=== PATIENT | male | born 1960 | race Caucasian/White ===

== ENCOUNTER 2017-10-27 16:42 | Observation (INO) | payer OTHER, SELFPAY ==
[2017-10-27] VITALS (7 sets, daily range): BP systolic 129–156; BP diastolic 90–103; PULSE 67–91; RESP 11–19; TEMP 36.6–36.9; O2SAT 94–98; BMI 33.0; BMI 32.8
--- NOTE | 2017-10-27 17:26 | CT_ITS ---
STUDY: CT BRAIN WITHOUT CONTRAST REASON FOR EXAM: Male, 57 years old. Right ear pain. RADIATION DOSAGE (If Supplied By Facility): CTDIvol = ( 60.81 ) mGy, DLP = ( 1112.69 ) mGycm TECHNIQUE: Transaxial CT imaging of the brain was performed without administration of intravenous contrast material. Individualized dose optimization techniques were used for this CT. COMPARISON: None. FINDINGS: Normal soft tissue structures. Normal calvarium. Normal size ventricles and extra-axial spaces for the patient's age. Normal white matter tracts of the cerebral hemispheres. Normal basal ganglia and thalami. Normal brainstem. There is prominence of the retrocerebellar CSF space suggestive of an underlying ann cisterna magna. There is no intracranial hemorrhage. There are no findings of an acute ischemic infarction. There is mild opacification of the ethmoid sinuses suggestive of a history of sinusitis. CT/Brain/Head without Contrast IMPRESSION: No acute intracranial process. Mild opacification of the ethmoid sinuses consistent with a history of sinusitis. 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 Electronically Signed: Ruth Montes MD at 18:23 EDT Tel , Service support ,
--- NOTE | 2017-10-27 17:35 | RAD_ITS ---
STUDY: X-RAY CHEST REASON FOR EXAM: Male, 57 years old. Cough TECHNIQUE: Portable upright AP chest COMPARISON: None. FINDINGS: Background pulmonary features suggesting the presence of COPD. Correlate smoking history. Tiny radiodense pulmonary nodules most consistent with calcified granulomata. Routine screening chest CT is recommended. The lungs are otherwise clear. Normal cardiomediastinal silhouette, edgardo and pleural margins. No acute osseous or upper abdominal process. RAD/Chest 1 View (Portable) IMPRESSION: No acute cardiopulmonary process. Electronically Signed: Tim Loo, at 17:45 EDT Tel , Service support ,
[2017-10-27 17:50] LABS: Absolute Lymphocyte Count 2.33 X10^3/ul (0.83-4.51); Absolute Neutrophil Count 2.8 X10^3/uL (2.0-7.7); Basophil# 0.02 X10^3/uL; Basophil% 0.3 % (0-1); Eosinophils% 9.4 % (0-5); Hematocrit 42.6 % (40-54); Hemoglobin 14.4 g/dl (13.0-16.5); Lymphocyte # 2.33 X10^3/ul (4.0); Lymphocyte % 36.6 % (19-41); Mean Corp Hgb Conc 33.8 g/gl (32-36); Mean Corpuscular Hgb 30.1 pg (27.0-32.0); Mean Corpuscular Volume 88.9 fL (80-94); Mean Platelet Vol. 10.4 fl (6.2-12.0); Monocyte# 0.61 X10^3/uL; Monocyte% 9.6 % (0-10); Neutrophil % 44.1 % (47-70); Platelet Count 207 K/mm3 (150-450); RBC Distribution Width CV 13.1 % (11.6-14.6); RBC Distribution Width SD 42.4 fl (35.1-43.9); Red Blood Count 4.79 M/mm3 (4.6-6.2); White Blood Count 6.4 K/mm3 (4.4-11.0)
[2017-10-27] MEDS: 0.9% Normal Saline 1,000 ML 150 ML IV (18:02)
[2017-10-27 18:05] LABS: AST(SGOT) 49 U/L (15-37); Alanine Aminotransfer ALT/SGPT 97 U/L (16-61); Albumin, Serum 3.8 g/dL (3.2-5.0); Alkaline Phosphatase 73 U/L (45-117); Anion Gap 7 (5-15); BUN 9 mg/dL (7-18); BUN/Creat Ratio 10.8 RATIO (10-20); Calcium,Total 8.9 mg/dL (8.5-10.1); Chloride 105 mmol/L (98-107); Creatinine, Serum 0.83 mg/dL (0.70-1.30); EST Glomerular Filtration Rate 101 mL/min (>60); Est Glom Filt Rate - Afr Amer 122 mL/min (>60); Estimated Creatinine Clearance 91.81 ml/min; Globulin 3.8 g/dL (2.2-4.2); Glucose 120 mg/dL (74-106); Potassium 4.2 mmol/L (3.5-5.1); Protein, Total 7.6 g/dL (6.4-8.2); Sodium Level 138 mmol/L (136-145)
[2017-10-27 18:17] LABS: POSITIVE COUNT NO; POSITIVE DIFFERENTIAL NO; POSITIVE MORPHOLOGY NO
--- NOTE | 2017-10-27 19:26 | PCM.HP.STD ---
Problem List (1) Fatigue Status: Acute (2) Memory changes Status: Acute (3) Tinnitus Status: Acute History of Present Illness Date of Admission: 10/27/17 Chief Complaint: Fatigue, memory problems and ringing in his ears. The patient is a 57 year old M with a significant history of hyperlipidemia who presents with multiple complaints. He reports of fatigue ?3 days. He describes a severe tiredness with exertion that limits his activities compared to his previous lifestyle. He reports intermittent memory loss and forgetfulness that has been ongoing since March of this year. He reports that occasionally he forgets his phone number and his home address. Also he reports ringing in his ears spanning about 8 months duration. Also, he has intermittent pain in his right ears; and occasional discharge in his left ear. The patient works at a [employer] and is exposed to loud noise. He states that he wears ear plug while at work. Past Medical History Past Medical History (Chronic Problems): Chronic Problems (Last Updated 10/28/17 @ 03:08 by Pedrito Ybarra MD) Tobacco dependence syndrome (Chronic) Medical History: Medical History (Last Updated 10/28/17 @ 03:08 by Pedrito Ybarra MD) Hyperlipidemia E78.5 Allergies No Known Allergies Allergy (Verified 10/27/17 16:46) Home Medications: Ambulatory Orders Medication Instructions Recorded Aspirin [Aspirin, Baby] 81 mg PO DAILY@0800 10/28/16 Rosuvastatin Calcium [Rosuvastatin 5 mg PO DAILY 10/28/16 Calcium] B12/Levomefolate Calcium/B-6 1 each PO DAILY 10/27/17 [Folbic Rf Tablet] Surgical History: no surgical history Smoking Status: Current every day smoker Alcohol: Occasional - *Family History Paternal History Items: Heart Disease Review of Systems Constitutional: Reports: Fatigue Eyes: Denies: Blurred vision, Pain HEENT: Reports: Ear Pain - right ear. Denies: Difficulty Hearing Cardiovascular: Denies: Chest Pain, Palpitations Respiratory: Reports: Shortness of breath upon exertion Gastrointestinal: Denies: Abdominal Pain, Nausea, Vomiting Genitourinary: Denies: Dysuria Musculoskeletal: Denies: Joint Pain, Joint Tenderness Skin: Reports: Dryness Neurological: Denies: Numbness, Tingling, Focal weakness Psychiatric: Denies: Anxiety, Depression, Homicidal Ideations, Suicidal Ideations Hematologic/ Lymphatic: Denies: Easy Bruising, Easy Bleeding VTE Information - Inpt Only VTE Present on Admission: No VTE Mechan Device Prophylaxis: SCD's VTE Pharm Prophylaxis ordered?: No Reason prophylaxis not ordered:: Treatment Not Indicated Patient Problems: Active and Suspected Problems (Last Updated 10/28/17 @ 03:08 by Pedrito Ybarra MD) Fatigue (Acute) Memory changes (Acute) Tinnitus (Acute) - Physical Exam General: Alert, Oriented x3, Cooperative HEENT: - - Left ear with earwax and black matter Neck: Supple, No JVD, Negative Carotid Bruits Lungs: Clear to auscultation, Normal air movement Cardiovascular: Regular rate, No murmurs Abdomen: Bowel Sounds Present, Soft, Non Tender Extremities: No edema, Capillary Refill Less than 3 Seconds Skin: No rashes, No breakdown Musculoskeletal: No Tenderness to Palpation of Joints or Extremities Neurological: Cranial nerves II-XII grossly intact Psych/Mental Status: Normal Affect, Appropriate Vital Signs Temp Pulse Resp BP Pulse Ox 98.5 F 73 14 148/95 H 96 10/27/17 16:44 10/27/17 19:08 10/27/17 19:08 10/27/17 19:08 10/27/17 19:08 Oxygen Delivery Method Room Air Weight: 95.8 kg Body Mass Index (BMI) 33.0 Laboratory Tests Past 24 Hrs 10/27/17 10/27/17 17:35 17:35 WBC 6.4 RBC 4.79 Hgb 14.4 Hct 42.6 MCV 88.9 MCH 30.1 MCHC 33.8 RDW 13.1 RDW Differential 42.4 Plt Count 207 MPV 10.4 Immature Gran % (Auto) 0.000 Neut % (Auto) 44.1 L Lymph % (Auto) 36.6 [place] % (Auto) 9.6 Eos % (Auto) 9.4 H Baso % (Auto) 0.3 Absolute Neuts (auto) 2.8 Absolute Lymphs (auto) 2.33 Total Counted Not Reportable Sodium 138 Potassium 4.2 Chloride 105 Carbon Dioxide 26.0 Anion Gap 7 BUN 9 Creatinine 0.83 Estim Creat Clear Calc 91.81 Est GFR (MDRD) Af Amer 122 Est GFR (MDRD) Non-Af 101 BUN/Creatinine Ratio 10.8 Glucose 120 H Calcium 8.9 Total Bilirubin 0.10 L AST 49 H ALT 97 H Alkaline Phosphatase 73 Troponin I < 0.015 Total Protein 7.6 Albumin 3.8 Globulin 3.8 Albumin/Globulin Ratio 1.0 Assessment/Plan All Active Problems (Last Updated 10/28/17 @ 03:08 by Pedrito Ybarra MD) Fatigue (Acute) Memory changes (Acute) Tinnitus (Acute) The patient is a 57 year old M with a significant history of hyperlipidemia who fatigue and shortness of breath on exertion; memory loss; and tinnitus. Fatigue and shortness of breath on exertion This may be due to coronary syndrome, valvular disease or heart failure Stress test in a.m. Echocardiogram ordered. Memory loss Patient has no focal weakness. However due to persistence of symptoms we will order MRI/MRA of neck and head to rule out stroke; and other head lesions. 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 Tobacco abuse Counseled Nicotine patch ordered. Ear pain and tinnitus. Debrox to left ear Patient to follow up with outpatient ENT if MRI is unremarkable. Code Visit OBSV E&M: 53159 Initial observation care L3
--- NOTE | 2017-10-27 19:40 | ED.DCSUM_ITS ---
- ER Visit Summary Date of Service: 10/27/17 Chief Complaint: [Pain right ear and fatigue, forgetfulness] History of Present Illness: The patient is a 57 M [presents to the emergency department with complaint of pain in the right ear for 7 8 months. Patient's been fatigued for 3 days. Patient has not gone to work because he has no energy. Patient denies any chest pain. Has a mild chronic cough related to smoking. Patient does complain exertional symptoms of dyspnea and severe fatigue with minimal activity. Over the last 3 4 days he has noticed an increase in the symptoms. Patient denies recent travel or surgery. Patient also states that a month ago he woke up and could not remember where he was that lasted about 30-40 minutes. Yesterday patient had an episode where he could not remember his phone number which is unusual as he is very good with numbers normally. Patient denies recent illness.] Physical Examination: [HEENT-PERRLA, EOMI. Cranial nerves II through XII grossly intact. TMs clear. Mucous membranes moist. No adenopathy. Cardiovascular-regular rate and rhythm without murmur or ectopy Lungs-clear to auscultation, chest wall stable without crepitus or subcu emphysema Abdomen-normoactive bowel sounds, soft, nontender, no rebound or rigidity, no peritoneal signs. Neuro [id number] and heel harrison testing within normal limits, negative Romberg, negative for drift, fundi benign. NIH stroke scale 0. 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 CBC with differential showed white count 6.4, hemoglobin 14, hematocrit 43, platelets 207. Chemistries unremarkable. LFTs unremarkable other than a slightly elevated ALT of 97 and elevated AST of 49. Troponin was less than 0.015. Chest x-ray showed nothing acute. CT brain showed nothing acute other than prominence of the retrocerebellar CSF space which may be due to would like an arachnoid cyst.] Emergency Department Course and Treatment: [] Treatment Plan: [She will be admitted for further workup and evaluation of suspected TIA. I also am concerned about his exertional dyspnea and fatigue as I cannot rule out cardiac etiology.] Disposition: [Admit] Impression: [TIA Exertional dyspnea-rule out acute coronary syndrome] This note was generated with [employer] dictation software. It may contain incorrect words, spelling, and punctuation that were not noted in review of the chart prior to signing ED Disposition - Plan for ED Patient: Chief Complaint: General Illness Referrals: Care Physician,No Primary [Primary Care Provider] -
--- NOTE | 2017-10-27 21:00 | NURSING ---
Called ED auriculotherapistRosi NICHOLAS at this time to confirm Pt okay to come to PCU.
[2017-10-27 21:10] LABS: Bacteria 0 SEEN /hpf (None Seen); Mucous, Urine 0 SEEN /hpf (<or=2+); Red Blood Cells-Urine 0 SEEN /hpf (0-5); Squamous Epithelial Cells - UA 0 SEEN /hpf (0-5); White Blood Cells 0 SEEN /hpf (0-5)
[2017-10-27 21:20] LABS: Color, Urine Yellow (Yellow); Glucose, Dipstick Normal (Normal); Ketone-Dipstick Negative (Negative); Leukocyte Esterase-Dipstick Negative /ul (Negative); Nitrite-Dipstick Negative (Negative); Occult Blood-Urine Negative /ul (Negative); Protein-Dipstick Negative (Negative); Specific Gravity, Urine 1.015 (1.002-1.030); Urine Bilirubin Dipstick Negative (Negative); Urine Clarity Clear (Clear); Urine Urobilinogen Normal (Normal)
--- NOTE | 2017-10-27 21:40 | ECHOD_ITS ---
Reason For Study: Dyspnea/SOB Procedure This was a 2D Doppler, Color Flow transthoracic echocardiogram. Exam performed portable in patient room. Left Ventricle Normal size and thickness. The estimated ejection fraction is 65 %. Stage 1 diastolic dysfunction. No regional wall motion abnormalities noted. Right Ventricle Normal size and thickness. Normal systolic function. Atria Normal left atrium. Normal right atrium. Normal atrial septum. Mitral Valve The mitral valve is structurally normal. No prolapse or stenosis seen. Tricuspid Valve Normal tricuspid valve. Trivial tricuspid valve insufficiency. Right ventricular systolic pressure estimated to be 21 mmHg. Aortic Valve Trisinus/trileaflet aortic valve. Mild diffuse aortic valve thickening. No aortic valve insufficiency. Pulmonic Valve Normal pulmonic valve. Great Vessels Normal aortic root. Normal arch. Normal inferior vena cava. Inferior vena cava collapse with sniff. Pericardium/Pleural No pericardial effusion. MMode/2D Measurements & Calculations LVIDd: 4.6 cm IVSd: 0.96 cm Ao root diam: 3.3 cm LVIDs: 3.1 cm LVPWd: 1.0 cm RVDd: 3.4 cm FS: 33.4 % LAV(MOD-bp): 49.0 ml EDV(MOD-sp4): 89.4 ml SV(MOD-sp4): 56.6 ml LAV(MOD-bp) Indexed: 23.7 ml/m2 ESV(MOD-sp4): 32.8 ml LAV(MOD-sp2): 60.6 ml EF(MOD-sp4): 63.3 % LAV(MOD-sp4): 34.6 ml LA A4 area: 13.7 cm2 RA A4 area: 10.8 cm2 Doppler Measurements & Calculations MV E max kevin: 69.1 cm/sec Lat Peak E' Kevin: 8.0 cm/sec Med Peak E' Kevin: 7.6 cm/sec MV A max kevin: 74.8 cm/sec E/E' lat: 8.6 E/E' med: 9.1 MV E/A: 0.92 Ao V2 max: 98.3 cm/sec LV V1 max: 89.8 cm/sec PA V2 max: 83.7 cm/sec Ao max P.9 mmHg LV V1 max P.2 mmHg Ao V2 mean: 72.0 cm/sec Ao mean P.2 mmHg Ao V2 VTI: 22.7 cm TR max kevin: 196.2 cm/sec TR max P.4 mmHg Interpretation Summary The estimated ejection fraction is 65 %. Stage 1 diastolic dysfunction. Trivial tricuspid valve insufficiency. Right ventricular systolic pressure estimated to be 21 mmHg. There is no comparison study available. Ordering Physician: Pedrito Ybarra Performed By: Luna Garrett RDCS, RVT
--- NOTE | 2017-10-27 22:08 | EKG12_ITS ---
Test Reason : CHEST PAIN Blood Pressure : / mmHG Vent. Rate : 071 BPM Atrial Rate : 071 BPM P-R Int : 172 ms QRS Dur : 102 ms QT Int : 386 ms P-R-T Axes : 048 -63 038 degrees QTc Int : 419 ms Normal sinus rhythm Left axis deviation Low voltage QRS (LIMB LEADS) Abnormal ECG Confirmed by ELIAS PHOENIX, MARCELLO ([id number]), editor in chief JUAN HOUSTON ([id number]) on 10/30/2017 2:07:28 PM Referred By: TAMMI Confirmed By:MARCELLO GRIFFIN MD
[2017-10-27] MEDS: Atorvastatin Calcium 10 MG Tablet PO (23:12)
[2017-10-27] MEDS: Aspirin 325 MG Tablet PO (23:12)
[2017-10-27] MEDS: Carbamide Peroxide 15 ML Bottle 5 DRP OTIC (23:12)
[2017-10-28] VITALS (13 sets, daily range): BP systolic 120–152; BP diastolic 75–96; PULSE 64–87; RESP 9–16; TEMP 36.5–36.9; O2SAT 94–98; BMI 32.8
[2017-10-28 02:57] LABS: Hematocrit 39.6 % (40-54); Hemoglobin 13.7 g/dl (13.0-16.5); Mean Corp Hgb Conc 34.6 g/gl (32-36); Mean Corpuscular Hgb 30.5 pg (27.0-32.0); Mean Corpuscular Volume 88.2 fL (80-94); Mean Platelet Vol. 9.8 fl (6.2-12.0); Platelet Count 206 K/mm3 (150-450); RBC Distribution Width CV 13.1 % (11.6-14.6); RBC Distribution Width SD 41.9 fl (35.1-43.9); Red Blood Count 4.49 M/mm3 (4.6-6.2); White Blood Count 6.6 K/mm3 (4.4-11.0)
[2017-10-28 02:58] LABS: Scan Indicated on CBC? Y/N NO
[2017-10-28 03:03] LABS: Partial Thromboplast Time 27.9 Seconds (24.1-36.2); Prothrombin Time (Protime)PT. 12.7 SECONDS (11.7-14.9)
[2017-10-28 03:28] LABS: Anion Gap 9 (5-15); BUN 10 mg/dL (7-18); BUN/Creat Ratio 12.8 RATIO (10-20); Calcium,Total 8.9 mg/dL (8.5-10.1); Chloride 105 mmol/L (98-107); Cholesterol 203 mg/dL (200); Creatinine, Serum 0.78 mg/dL (0.70-1.30); EST Glomerular Filtration Rate 108 mL/min (>60); Est Glom Filt Rate - Afr Amer 131 mL/min (>60); Estimated Creatinine Clearance 97.69 ml/min; Glucose 94 mg/dL (74-106); High Density Lipoprotein 34 mg/dL; Sodium Level 141 mmol/L (136-145); Thyroid Stim Hormone (TSH) 3.83 uIU/mL (0.358-3.74); Triglycerides 188 mg/dL; Very Low Density Lipoprotein 38 mg/dL (5-40)
--- NOTE | 2017-10-28 05:55 | EKG12_ITS ---
Test Reason : AM EKG Blood Pressure : / mmHG Vent. Rate : 082 BPM Atrial Rate : 082 BPM P-R Int : 166 ms QRS Dur : 100 ms QT Int : 388 ms P-R-T Axes : 047 -37 043 degrees QTc Int : 453 ms Normal sinus rhythm Left axis deviation Low voltage QRS (LIMB LEADS) Abnormal ECG Confirmed by ELIAS PHOENIX, MARCELLO ([id number]), pictures editor JUAN HOUSTON ([id number]) on 10/30/2017 2:06:35 PM Referred By: TAMMI Confirmed By:MARCELLO GRIFFIN MD
[2017-10-28] MEDS: Aspirin 81 MG TAB.CHEW PO (06:09)
[2017-10-28] MEDS: Vitamin B Comp W-C Capsule 1 CAP PO (09:30)
[2017-10-28] MEDS: Carbamide Peroxide 15 ML Bottle 5 DRP OTIC ×2 (09:30→21:49)
--- NOTE | 2017-10-28 10:58 | STRESSREP ---
Stress Test Report Date: 10/28/2017 Procedure: Exercise tolerance test/imaging study Indications: Shortness of breath/dyspnea Consent: Per the patient Procedure: The patient exercised on a Dante protocol for 7 minutes 30 seconds completing Stage II and 1 minute and 30 seconds of Stage III achieving a peak heart rate of 123 bpm (75 % predicted maximal heart rate) with a peak blood pressure 172/84 mmHg and a peak MET capacity of 9 METs. The baseline ECG demonstrated normal sinus rhythm. The peak exercise ECG demonstrated no obvious ECG changes. There was an isolated PVC during recovery. The functional capacity was considered average. There was [no complaint of chest discomfort during exercise or recovery]. The examination was discontinued secondary to dyspnea. Impression: 1. Technically adequate (percent predicted maximal heart rate greater than 85%) exercise tolerance test 2. Peak exercise ECG with no obvious ECG changes 3. There was an isolated PVC during recovery. 4. Pharmacologic (Regadenoson) evaluation pending Procedure: Pharmacologic stress nuclear imaging study Consent: Per the patient Procedure: The patient underwent pharmacologic (Regadenoson) evaluation with a peak heart rate of 115 beats per minute (70 predicted maximal heart rate) and a peak blood pressure of 140/92 mmHg. The baseline ECG demonstrated normal sinus rhythm. The peak pharmacologic ECG demonstrated no obvious. [There were no cardiac dysrhythmias pretest, during pharmacologic infusion, or recovery]. [There was no complaint of chest discomfort during pharmacologic infusion or recovery]. The examination was discontinued secondary to completion of protocol. Impression: 1. Pharmacologic (Regadenoson) evaluation 2. Peak pharmacologic ECG with no obvious ECG changes. 3. There were no cardiac dysrhythmias pretest, during pharmacologic infusion, or recovery 4. Nuclear images pending Myocardial perfusion imaging study: Technique: The patient was injected with 12 millicuries of technetium 99m Cardiolite and subsequently rest SPECT Cardiolite nuclear imaging was obtained in the horizontal long, vertical long, and short axis views. The patient exercised on a Dante protocol for 7 minutes 30 seconds completing Stage II and 1 minute and 30 seconds of Stage III achieving a peak heart rate of 123 bpm (75 % predicted maximal heart rate) with a peak blood pressure 172/84 mmHg and a peak MET capacity of 9 METs. The patient underwent pharmacologic (Regadenoson) evaluation with a peak heart rate of 115 beats per minute (70 predicted maximal heart rate) and a peak blood pressure of 140/92 mmHg. The patient was injected with 35.7 millicuries of technetium 99m Cardiolite and subsequently stress SPECT Cardiolite nuclear imaging was obtained in the horizontal long, vertical long, and short axis views. A gated Cardiolite study at peak stress was obtained. Interpretation: Rest and stress SPECT Cardiolite nuclear imaging status post realignment, normalization, and attenuation correction demonstrate relative uniform tracer uptake and myocardial perfusion appearing within normal limits. [There is end systolic thickening and brightening]. [The gated Cardiolite study demonstrates myocardial thickening and inward wall motion]. The reported LVEF is 72 %. Impression: 1. [Rest and stress SPECT Cardiolite nuclear imaging demonstrate relative uniform tracer uptake and myocardial perfusion appearing within normal limits]. 2. The gated Cardiolite study reports an LVEF of 72 %. This note was generated with [employer] software. It may contain incorrect words, spelling, and punctuation that were not noted in checking the note before signing.
--- NOTE | 2017-10-28 11:02 | STRESSREP_ITS ---
Stress Test Report Date: 10/28/2017 Procedure: Exercise tolerance test/imaging study Indications: Shortness of breath/dyspnea Consent: Per the patient Procedure: The patient exercised on a Dante protocol for 7 minutes 30 seconds completing Stage II and 1 minute and 30 seconds of Stage III achieving a peak heart rate of 123 bpm (75 % predicted maximal heart rate) with a peak blood pressure 172/ 84 mmHg and a peak MET capacity of 9 METs. The baseline ECG demonstrated normal sinus rhythm. The peak exercise ECG demonstrated no obvious ECG changes. There was an isolated PVC during recovery. The functional capacity was considered average. There was [no complaint of chest discomfort during exercise or recovery]. The examination was discontinued secondary to dyspnea. Impression: 1. Technically adequate (percent predicted maximal heart rate greater than 85% ) exercise tolerance test 2. Peak exercise ECG with no obvious ECG changes 3. There was an isolated PVC during recovery. 4. Pharmacologic (Regadenoson) evaluation pending Procedure: Pharmacologic stress nuclear imaging study Consent: Per the patient Procedure: The patient underwent pharmacologic (Regadenoson) evaluation with a peak heart rate of 115 beats per minute (70 predicted maximal heart rate) and a peak blood pressure of 140/92 mmHg. The baseline ECG demonstrated normal sinus rhythm. The peak pharmacologic ECG demonstrated no obvious. [There were no cardiac dysrhythmias pretest, during pharmacologic infusion, or recovery]. [There was no complaint of chest discomfort during pharmacologic infusion or recovery]. The examination was discontinued secondary to completion of protocol. Impression: 1. Pharmacologic (Regadenoson) evaluation 2. Peak pharmacologic ECG with no obvious ECG changes. 3. There were no cardiac dysrhythmias pretest, during pharmacologic infusion, or recovery 4. Nuclear images pending Myocardial perfusion imaging study: Technique: The patient was injected with 12 millicuries of technetium 99m Cardiolite and subsequently rest SPECT Cardiolite nuclear imaging was obtained in the horizontal long, vertical long, and short axis views. The patient exercised on a Dante protocol for 7 minutes 30 seconds completing Stage II and 1 minute and 30 seconds of Stage III achieving a peak heart rate of 123 bpm (75 % predicted maximal heart rate) with a peak blood pressure 172/84 mmHg and a peak MET capacity of 9 METs. The patient underwent pharmacologic (Regadenoson) evaluation with a peak heart rate of 115 beats per minute (70 predicted maximal heart rate) and a peak blood pressure of 140/92 mmHg. The patient was injected with 35.7 millicuries of technetium 99m Cardiolite and subsequently stress SPECT Cardiolite nuclear imaging was obtained in the horizontal long, vertical long, and short axis views. A gated Cardiolite study at peak stress was obtained. Interpretation: Rest and stress SPECT Cardiolite nuclear imaging status post realignment, normalization, and attenuation correction demonstrate relative uniform tracer uptake and myocardial perfusion appearing within normal limits. [There is end systolic thickening and brightening]. [The gated Cardiolite study demonstrates myocardial thickening and inward wall motion]. The reported LVEF is 72 %. Impression: 1. [Rest and stress SPECT Cardiolite nuclear imaging demonstrate relative uniform tracer uptake and myocardial perfusion appearing within normal limits]. 2. The gated Cardiolite study reports an LVEF of 72 %. This note was generated with [employer] software. It may contain incorrect words, spelling, and punctuation that were not noted in checking the note before signing.
--- NOTE | 2017-10-28 13:59 | PCM.PN.HOSP ---
Patient Problems: Active and Suspected Problems (Last Updated 10/28/17 @ 03:08 by Pedrito Ybarra MD) Fatigue (Acute) Memory changes (Acute) Tinnitus (Acute) Subjective: Patient seen and examined. He had a stress test today which was negative. He has no complaints. Ringing in ears has resolved. He denies any fever or chills, cough or chest pain, any shortness of breath, abdominal pain, any diarrhea vomiting. Review of systems otherwise negative. Vitals/I&O's: Vital Signs Temp Pulse Resp BP Pulse Ox 98.4 F 77 16 152/86 H 97 10/28/17 13:30 10/28/17 13:30 10/28/17 13:30 10/28/17 13:30 10/28/17 13:30 Oxygen Delivery Method Room Air Weight: 209 lb 10.554 oz Body Mass Index (BMI) 32.8 Intake and Output for Last 24 Hours 10/26/17 10/27/17 10/28/17 23:59 23:59 23:59 Intake Total 377 / 377 480 / 480 Output Total 0 / 0 Balance 377 / 377 480 / 480 General: Alert, Oriented x3, Cooperative HEENT: Atraumatic, PERRLA, EOMI, Normocephalic Oral: Moist Mucosa Neck: Supple, No JVD, Negative Carotid Bruits Lungs: Clear to auscultation, Normal air movement, No rhonchi, No wheeze, No rales Cardiovascular: Regular rate, Regular Rhythm, Normal S1, Normal S2, No murmurs Abdomen: Bowel Sounds Present, Soft, Non Tender, Non-Distended, No Hepato-splenomegaly Extremities: No clubbing, No cyanosis, No edema, Capillary Refill Less than 3 Seconds Skin: No rashes, No breakdown Musculoskeletal: No Tenderness to Palpation of Joints or Extremities Lymphatic: No Cervical, Supraclavicular, or Inguinal Adenopathy Neurological: Cranial nerves II-XII grossly intact, Motor Exam 5/5 strength throughout Psych/Mental Status: Normal Affect, Appropriate, Alert and oriented to time, place, person, mood and affect Laboratory Results 10/27/17 20:59: Urine Color Yellow, Urine Clarity Clear, Urine pH 7.0, Ur Specific Leonard 1.015, Urine Protein Negative, Urine Glucose (UA) Normal, Urine Ketones Negative, Urine Occult Blood Negative, Urine Nitrite Negative, Urine Bilirubin Negative, Urine Urobilinogen Normal, Ur Leukocyte Esterase Negative, Urine RBC 0 SEEN, Urine WBC 0 SEEN, Ur Squamous Epith Cells 0 SEEN, Urine Bacteria 0 SEEN, Urine Mucus 0 SEEN 10/27/17 22:20: Troponin I < 0.015 10/28/17 02:40: WBC 6.6, RBC 4.49 L, Hgb 13.7, Hct 39.6 L, MCV 88.2, MCH 30.5, MCHC 34.6, RDW 13.1, RDW Differential 41.9, Plt Count 206, MPV 9.8 10/28/17 02:40: Sodium 141, Potassium 4.0, Chloride 105, Carbon Dioxide 27.0, Anion Gap 9, BUN 10, Creatinine 0.78, Estim Creat Clear Calc 97.69, Est GFR (MDRD) Af Amer 131, Est GFR (MDRD) Non-Af 108, BUN/Creatinine Ratio 12.8, Glucose 94, Calcium 8.9, Triglycerides 188, Cholesterol 203 H, LDL Cholesterol 131 H, VLDL Cholesterol 38, HDL Cholesterol 34 L, TSH 3.83 H 10/28/17 02:40: PT 12.7, INR 1.0, APTT 27.9 10/28/17 02:40: Troponin I < 0.015 10/28/17 05:40: Troponin I < 0.[address] 10/27/17 17:26 IMPRESSION: No acute intracranial process. Mild opacification of the ethmoid sinuses consistent with a history of sinusitis. 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 Electronically Signed: Ruth Montes MD at 18:23 EDT Tel , Service support , Chest X-Ray 10/27/17 17:35 IMPRESSION: No acute cardiopulmonary process. Electronically Signed: Tim Loo, at 17:45 EDT Tel , Service support , Current Medications Aspirin (Aspirin, Baby) 81 mg PO DAILY@0800 [facility] Last Admin: 10/28/17 06:09 Dose: 81 mg Atorvastatin Calcium (Lipitor) 10 mg PO QHS [facility] Last Admin: 10/27/17 23:12 Dose: 10 mg Bisacodyl (Dulcolax) 5 mg PO DAILY PRN PRN PRN Reason: Constipation Carbamide Perox/Anhydrous Glycerin (Debrox) 5 drop OTIC BID [facility] Last Admin: 10/28/17 09:30 Dose: 5 drop Heparin Sodium (Beef Lung) (Heparin 500 Unit/5 Ml (100/Ml)) 500 unit IV UD PRN PRN Reason: HEPARIN FLUSH Sodium Chloride () 250 mls @ 15 mls/hr IV .[id number] PRN PRN Reason: SALINE FLUSH Magnesium Hydroxide (Milk Of Magnesia) 30 ml PO DAILY PRN PRN Reason: Constipation Multivitamins (Allbee W/C Caplet, Thera B Comp/C) [facility] Last Admin: 10/28/17 09:30 Dose: 1 capsule Nicotine (Nicoderm Cq (Pbkc)) 21 mg TRANSDERM. DAILY [facility] Last Admin: 10/28/17 09:31 Dose: Not Given Nutritional Formula (Lactose Free) (Ensure Enlive) 120 ml PO 4X/DAY [facility] Last Admin: 10/28/17 13:12 Dose: Not Given Ondansetron HCl (Zofran) 4 mg IV Q8H PRN PRN PRN Reason: NAUSEA Sodium Chloride () 5 - 30 ml IV UD PRN PRN Reason: SALINE FLUSH Sodium Chloride () 10 ml IV UD PRN PRN Reason: VAD FLUSH Zolpidem Tartrate (Ambien (Generic)) 5 mg PO QHS PRN PRN PRN Reason: INSOMNIA Medical Necessity - Tobacco Use Smoking Status: Current every day smoker Tobacco Use: Cigarettes Assessment/Plan All Active Problems (Last Updated 10/28/17 @ 03:08 by Pedrito Ybarra MD) Fatigue (Acute) Memory changes (Acute) Tinnitus (Acute) 1. Shortness of breath resolved stress test negative echo ordered and pending 2. Occasional memory impairment neuro exam is grossly intact MRI/MRA ordered to rule out intracranial pathology will follow 3. Tinnitus and ear pain resolving. Said he thought he had ear pain, but that is better. Debrox to left ear will refer to ENT on discharge DVT prophylaxis: heparin Code status: full code This note was generated with [employer] software. It may contain incorrect words, spelling, and punctuation that were not noted in checking the note before signing. Code Visit OBSV E&M: 76917 Subsequent observation care L2
--- NOTE | 2017-10-28 14:02 | PN_ITS ---
Patient Problems: Active and Suspected Problems (Last Updated 10/28/17 @ 03:08 by Pedrito Ybarra MD) Fatigue (Acute) Memory changes (Acute) Tinnitus (Acute) Subjective: Patient seen and examined. He had a stress test today which was negative. He has no complaints. Ringing in ears has resolved. He denies any fever or chills , cough or chest pain, any shortness of breath, abdominal pain, any diarrhea vomiting. Review of systems otherwise negative. Vitals/I&O's: Vital Signs Temp Pulse Resp BP Pulse Ox 98.4 F 77 16 152/86 H 97 10/28/17 13:30 10/28/17 13:30 10/28/17 13:30 10/28/17 13:30 10/28/17 13:30 Oxygen Delivery Method Room Air Weight: 209 lb 10.554 oz Body Mass Index (BMI) 32.8 Intake and Output for Last 24 Hours 10/26/17 10/27/17 10/28/17 23:59 23:59 23:59 Intake Total 377 / 377 480 / 480 Output Total 0 / 0 Balance 377 / 377 480 / 480 General: Alert, Oriented x3, Cooperative HEENT: Atraumatic, PERRLA, EOMI, Normocephalic Oral: Moist Mucosa Neck: Supple, No JVD, Negative Carotid Bruits Lungs: Clear to auscultation, Normal air movement, No rhonchi, No wheeze, No rales Cardiovascular: Regular rate, Regular Rhythm, Normal S1, Normal S2, No murmurs Abdomen: Bowel Sounds Present, Soft, Non Tender, Non-Distended, No Hepato- splenomegaly Extremities: No clubbing, No cyanosis, No edema, Capillary Refill Less than 3 Seconds Skin: No rashes, No breakdown Musculoskeletal: No Tenderness to Palpation of Joints or Extremities Lymphatic: No Cervical, Supraclavicular, or Inguinal Adenopathy Neurological: Cranial nerves II-XII grossly intact, Motor Exam 5/5 strength throughout Psych/Mental Status: Normal Affect, Appropriate, Alert and oriented to time, place, person, mood and affect Laboratory Results 10/27/17 20:59: Urine Color Yellow, Urine Clarity Clear, Urine pH 7.0, Ur Specific [place] 1.015, Urine Protein Negative, Urine Glucose (UA) Normal, Urine Ketones Negative, Urine Occult Blood Negative, Urine Nitrite Negative, Urine Bilirubin Negative, Urine Urobilinogen Normal, Ur Leukocyte Esterase Negative, Urine RBC 0 SEEN, Urine WBC 0 SEEN, Ur Squamous Epith Cells 0 SEEN, Urine Bacteria 0 SEEN, Urine Mucus 0 SEEN 10/27/17 22:20: Troponin I < 0.015 10/28/17 02:40: WBC 6.6, RBC 4.49 L, Hgb 13.7, Hct 39.6 L, MCV 88.2, MCH 30.5, MCHC 34.6, RDW 13.1, RDW Differential 41.9, Plt Count 206, MPV 9.8 10/28/17 02:40: Sodium 141, Potassium 4.0, Chloride 105, Carbon Dioxide 27.0, Anion Gap 9, BUN 10, Creatinine 0.78, Estim Creat Clear Calc 97.69, Est GFR ( MDRD) Af Amer 131, Est GFR (MDRD) Non-Af 108, BUN/Creatinine Ratio 12.8, Glucose 94, Calcium 8.9, Triglycerides 188, Cholesterol 203 H, LDL Cholesterol 131 H, VLDL Cholesterol 38, HDL Cholesterol 34 L, TSH 3.83 H 10/28/17 02:40: PT 12.7, INR 1.0, APTT 27.9 10/28/17 02:40: Troponin I < 0.015 10/28/17 05:40: Troponin I < 0.[address] 10/27/17 17:26 IMPRESSION: No acute intracranial process. Mild opacification of the ethmoid sinuses consistent with a history of sinusitis. 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 Electronically Signed: Ruth Montes MD at 18:23 EDT Tel , Service support , Chest X-Ray 10/27/17 17:35 IMPRESSION: No acute cardiopulmonary process. Electronically Signed: Tim Loo, at 17:45 EDT Tel , Service support , Current Medications Aspirin (Aspirin, Baby) 81 mg PO DAILY@0800 [facility] Last Admin: 10/28/17 06:09 Dose: 81 mg Atorvastatin Calcium (Lipitor) 10 mg PO QHS [facility] Last Admin: 10/27/17 23:12 Dose: 10 mg Bisacodyl (Dulcolax) 5 mg PO DAILY PRN PRN PRN Reason: Constipation Carbamide Perox/Anhydrous Glycerin (Debrox) 5 drop OTIC BID [facility] Last Admin: 10/28/17 09:30 Dose: 5 drop Heparin Sodium (Beef Lung) (Heparin 500 Unit/5 Ml (100/Ml)) 500 unit IV UD PRN PRN Reason: HEPARIN FLUSH Sodium Chloride () 250 mls @ 15 mls/hr IV .[id number] PRN PRN Reason: SALINE FLUSH Magnesium Hydroxide (Milk Of Magnesia) 30 ml PO DAILY PRN PRN Reason: Constipation Multivitamins (Allbee W/C Caplet, Thera B Comp/C) [facility] Last Admin: 10/28/17 09:30 Dose: 1 capsule Nicotine (Nicoderm Cq (Pbkc)) 21 mg TRANSDERM. DAILY [facility] Last Admin: 10/28/17 09:31 Dose: Not Given Nutritional Formula (Lactose Free) (Ensure Enlive) 120 ml PO 4X/DAY [facility] Last Admin: 10/28/17 13:12 Dose: Not Given Ondansetron HCl (Zofran) 4 mg IV Q8H PRN PRN PRN Reason: NAUSEA Sodium Chloride () 5 - 30 ml IV UD PRN PRN Reason: SALINE FLUSH Sodium Chloride () 10 ml IV UD PRN PRN Reason: VAD FLUSH Zolpidem Tartrate (Ambien (Generic)) 5 mg PO QHS PRN PRN PRN Reason: INSOMNIA Medical Necessity - Tobacco Use Smoking Status: Current every day smoker Tobacco Use: Cigarettes Assessment/Plan All Active Problems (Last Updated 10/28/17 @ 03:08 by Pedrito Ybarra MD) Fatigue (Acute) Memory changes (Acute) Tinnitus (Acute) 1. Shortness of breath * resolved * stress test negative * echo ordered and pending * 2. Occasional memory impairment * neuro exam is grossly intact * MRI/MRA ordered to rule out intracranial pathology * will follow * 3. Tinnitus and ear pain * resolving. Said he thought he had ear pain, but that is better. * Debrox to left ear * will refer to ENT on discharge * DVT prophylaxis: heparin Code status: full code This note was generated with [employer] software. It may contain incorrect words, spelling, and punctuation that were not noted in checking the note before signing. Code Visit OBSV E&M: 97245 Subsequent observation care L2
--- NOTE | 2017-10-28 21:40 | MRI_ITS ---
STUDY: MRA OF THE HEAD WITHOUT CONTRAST REASON FOR EXAM: Male, 57 years old. Weakness TECHNIQUE: 3-D [id number]-[id number] (TOF) imaging was performed with MIPs. The study was performed unenhanced. COMPARISON: None. FINDINGS: Normal bilateral petrous carotid arteries. Normal right cavernous carotid artery with a normal supraclinoid bifurcation. Normal left cavernous carotid artery with a normal supraclinoid bifurcation. Normal right A1 segments of the anterior cerebral artery. Normal left A1 segments of the anterior cerebral artery. Normal intact anterior communicating artery (ACOM). Normal bilateral A2 segments of the anterior cerebral arteries. Normal right M1 and M2 segments of the middle cerebral arteries, with a normal M1 bifurcation. Normal left M1 and M2 segments of the middle cerebral arteries, with a normal M1 bifurcation. Normal right posterior communicating artery (PCOM). Left posterior communicating artery not visualized consistent with normal variant. Normal bilateral vertebral arteries. Normal basilar artery with a normal basilar bifurcation. The visualized bilateral superior cerebellar (SCA) arteries are normal. Normal bilateral P1, P2 and visualized P3 segments of the posterior cerebral arteries. There is no demonstrated aneurysm of the [place] of [place]. There is no major vessel occlusion or hemodynamically significant stenosis. There is no demonstrated abnormality of the visualized brain. MRI/MRA Head ONLY without Contrast IMPRESSION: Normal MRA of the head Electronically Signed: Shawn Salvador MD at 16:13 EDT , Service support ,
--- NOTE | 2017-10-28 21:40 | MRI_ITS ---
STUDY: MRI BRAIN WITHOUT CONTRAST REASON FOR EXAM: Male, 57 years old. Right hand numbness and memory loss TECHNIQUE: Standardized multiplanar fat and water weighted pulse sequences were obtained. COMPARISON: CT the brain on October 27, 2017 FINDINGS: Normal size of the ventricles and extra-axial spaces for the patient's age. Normal white matter tracts of the supratentorial brain. Normal bilateral basal ganglia. Normal thalami. There is no extra-axial fluid accumulation. Normal flow voids within the major intracranial circulation suggesting patency by spin echo criteria. Normal sella turcica, pituitary gland, infundibular stalk, optic chiasm and hypothalamus. Normal tectal plate and pineal gland. There is signal loss within the inferior frontal lobes bilaterally on gradient echo weighted imaging sequence which may be consistent with hemosiderin secondary to old hemorrhagic contusions. Normal midbrain, karen and medulla. Normal cerebellum. Normal basal cisterns. Normal bilateral temporal bones. Normal bilateral internal auditory canals. No demonstrated orbital abnormality, within the constraints of a routine brain study. There is mucosal thickening in the ethmoid air cells bilaterally. Normal calvarium and skull base. Normal visualized soft tissue structures. Normal visualized upper cervical spine. MRI/Brain without Contrast IMPRESSION: Findings which may be consistent with old hemorrhagic contusions within the inferior frontal lobes however correlation with clinical history recommended. No other significant abnormalities. Specifically, no evidence for acute infarct Electronically Signed: Shawn Salvador MD at 16:12 EDT , Service support ,
--- NOTE | 2017-10-28 21:40 | MRI_ITS ---
STUDY: MRA NECK WITH AND WITHOUT CONTRAST REASON FOR EXAM: Male, 57 years old. Weakness TECHNIQUE: 3-D wwnr-gr-guuecs (TOF) imaging was performed in an 1.5 T MRI scanner. 10 ml of Gadavist was administered for the contrast enhanced images. COMPARISON: None. FINDINGS: RIGHT CAROTID ARTERIES: Normal right common carotid artery (CCA). Normal right common carotid bulb. Normal origin of the right internal carotid (ICA) artery without a hemodynamically significant stenosis. Normal visualized cervical portion of the right internal carotid artery. Normal origin of the right external carotid artery (ECA). LEFT CAROTID ARTERIES: Normal left common carotid artery (CCA). Normal left common carotid bulb. Normal origin of the left internal carotid (ICA) artery without a hemodynamically significant stenosis. Normal visualized cervical portion of the left internal carotid artery. Normal origin of the left external carotid artery (ECA). VERTEBRAL ARTERIES: Nonvisualization of the mid vertebral arteries bilaterally likely due to artifact.. MRI/MRA Neck WITH and W/O Contrast IMPRESSION: Less than optimal visualization of the vertebral arteries which may be further assessed with CTA if clinically warranted. No evidence for significant carotid stenosis Electronically Signed: Shawn Salvador MD at 16:15 EDT , Service support ,
[2017-10-28] MEDS: Atorvastatin Calcium 10 MG Tablet PO (21:50)
[2017-10-28] MEDS: Zolpidem Tartrate 5 MG Tablet PO (21:50)
[2017-10-29 03:04] VITALS: PULSE 76
[2017-10-29 03:56] VITALS: BP 109/59; PULSE 77; RESP 16; TEMP 36.8; O2SAT 96
[2017-10-29 05:34] LABS: Absolute Lymphocyte Count 2.05 X10^3/ul (0.83-4.51); Absolute Neutrophil Count 2.8 X10^3/uL (2.0-7.7); Basophil# 0.02 X10^3/uL; Basophil% 0.3 % (0-1); Eosinophil# 0.61 X10^3/uL; Hematocrit 40.5 % (40-54); Hemoglobin 13.7 g/dl (13.0-16.5); Lymphocyte # 2.05 X10^3/ul (4.0); Lymphocyte % 33.6 % (19-41); Mean Corp Hgb Conc 33.8 g/gl (32-36); Mean Corpuscular Volume 88.6 fL (80-94); Mean Platelet Vol. 10.2 fl (6.2-12.0); Monocyte# 0.61 X10^3/uL; Neutrophil % 45.9 % (47-70); Platelet Count 197 K/mm3 (150-450); RBC Distribution Width CV 12.8 % (11.6-14.6); RBC Distribution Width SD 41.4 fl (35.1-43.9); Red Blood Count 4.57 M/mm3 (4.6-6.2); White Blood Count 6.1 K/mm3 (4.4-11.0)
[2017-10-29 05:52] LABS: POSITIVE COUNT NO; POSITIVE DIFFERENTIAL NO; POSITIVE MORPHOLOGY NO
[2017-10-29 06:11] LABS: Anion Gap 10 (5-15); BUN 14 mg/dL (7-18); BUN/Creat Ratio 16.2 RATIO (10-20); Calcium,Total 9.1 mg/dL (8.5-10.1); Chloride 103 mmol/L (98-107); Creatinine, Serum 0.86 mg/dL (0.70-1.30); EST Glomerular Filtration Rate 97 mL/min (>60); Est Glom Filt Rate - Afr Amer 117 mL/min (>60); Glucose 132 mg/dL (74-106); Potassium 4.3 mmol/L (3.5-5.1); Sodium Level 139 mmol/L (136-145)
[2017-10-29 06:55] VITALS: PULSE 60
[2017-10-29 07:50] VITALS: O2SAT 95
[2017-10-29 09:52] VITALS: BP 128/87; PULSE 88; RESP 16; TEMP 37; O2SAT 97
[2017-10-29] MEDS: Aspirin 81 MG TAB.CHEW PO (09:53)
[2017-10-29] MEDS: Vitamin B Comp W-C Capsule 1 CAP PO (09:53)
[2017-10-29] MEDS: Carbamide Peroxide 15 ML Bottle 5 DRP OTIC (09:53)
[2017-10-29 10:57] VITALS: PULSE 76
--- NOTE | 2017-10-29 11:00 | PCM.DC ---
- Discharge Diagnoses Current Active Problems: Current Active and Chronic Problems (Last Updated 10/28/17 @ 03:08 by Pedrito Ybarra MD) Fatigue (Acute) Memory changes (Acute) Tinnitus (Acute) You will use the following diet at home:: Cardiac Your food should be the consistency of: Regular Your liquids should be the consistency of: Regular/Thin Discharge Activity: No Restrictions Weight Bearing Status: Weight bearing as tolerated Call your doctor if you observe: Dizziness Allergies/Adverse Reactions: Allergies No Known Allergies Allergy (Verified 10/27/17 16:46) Medications to take at Discharge Aspirin [Aspirin, Baby] 81 mg PO DAILY@0800 10/28/16 B12/Levomefolate Calcium/B-6 [Folbic Rf Tablet] 1 each PO DAILY 10/27/17 Atorvastatin Calcium 40 mg PO QHS #30 tab 10/29/17 The following prescriptions were given: Atorvastatin Calcium 40 mg PO QHS #30 tab Please follow up with your Primary Care Physician in: one week Test Results: Test results from this visit will be discussed in further detail at your follow-up appointment, if applicable. Please Follow Up With: Jerson Bond MD When: 2-3 weeks for tinnitus Please Follow Up With: Ivis Souza MD When: in 1-2 weeks to establish a primary care relationship Proposed Discharge Date: 10/29/17
--- NOTE | 2017-10-29 11:03 | DCINST_ITS ---
- Discharge Diagnoses Current Active Problems: Current Active and Chronic Problems (Last Updated 10/28/17 @ 03:08 by Pedrito Ybarra MD) Fatigue (Acute) Memory changes (Acute) Tinnitus (Acute) You will use the following diet at home:: Cardiac Your food should be the consistency of: Regular Your liquids should be the consistency of: Regular/Thin Discharge Activity: No Restrictions Weight Bearing Status: Weight bearing as tolerated Call your doctor if you observe: Dizziness Allergies/Adverse Reactions: Allergies No Known Allergies Allergy (Verified 10/27/17 16:46) Medications to take at Discharge Aspirin [Aspirin, Baby] 81 mg PO DAILY@0800 10/28/16 B12/Levomefolate Calcium/B-6 [Folbic Rf Tablet] 1 each PO DAILY 10/27/17 Atorvastatin Calcium 40 mg PO QHS #30 tab 10/29/17 The following prescriptions were given: Atorvastatin Calcium 40 mg PO QHS #30 tab Please follow up with your Primary Care Physician in: one week Test Results: Test results from this visit will be discussed in further detail at your follow- up appointment, if applicable. Please Follow Up With: Jerson Bond MD When: 2-3 weeks for tinnitus Please Follow Up With: Ivis Souza MD When: in 1-2 weeks to establish a primary care relationship Proposed Discharge Date: 10/29/17
--- NOTE | 2017-10-29 11:03 | DS.PCM_ITS ---
Discharge Date and Diagnosis Date of Admission: 10/27/17 Date of Discharge: 10/29/17 - Primary Discharge Diagnosis Active and Suspected Problems (Last Updated 10/28/17 @ 03:08 by Pedrito Ybarra MD) Fatigue (Acute) Memory changes (Acute) Tinnitus (Acute) - Secondary Discharge Diagnosis Chronic Problems (Last Updated 10/28/17 @ 03:08 by Pedrito Ybarra MD) Tobacco dependence syndrome (Chronic) Hospital Course and Treatment Imaging Results: Laboratory Tests 10/27/17 10/27/17 10/27/17 17:35 17:35 20:59 WBC 6.4 RBC 4.79 Hgb 14.4 Hct 42.6 MCV 88.9 MCH 30.1 MCHC 33.8 RDW 13.1 RDW Differential 42.4 Plt Count 207 MPV 10.4 Immature Gran % (Auto) 0.000 Neut % (Auto) 44.1 L Lymph % (Auto) 36.6 [place] % (Auto) 9.6 Eos % (Auto) 9.4 H Baso % (Auto) 0.3 Absolute Neuts (auto) 2.8 Absolute Lymphs (auto) 2.33 Total Counted Not Reportable PT INR APTT Sodium 138 Potassium 4.2 Chloride 105 Carbon Dioxide 26.0 Anion Gap 7 BUN 9 Creatinine 0.83 Estim Creat Clear Calc 91.81 Est GFR (MDRD) Af Amer 122 Est GFR (MDRD) Non-Af 101 BUN/Creatinine Ratio 10.8 Glucose 120 H Hemoglobin A1c Calcium 8.9 Total Bilirubin 0.10 L AST 49 H ALT 97 H Alkaline Phosphatase 73 Troponin I < 0.015 Total Protein 7.6 Albumin 3.8 Globulin 3.8 Albumin/Globulin Ratio 1.0 Triglycerides Cholesterol LDL Cholesterol VLDL Cholesterol HDL Cholesterol TSH Urine Color Yellow Urine Clarity Clear Urine pH 7.0 Ur Specific [place] 1.015 Urine Protein Negative Urine Glucose (UA) Normal Urine Ketones Negative Urine Occult Blood Negative Urine Nitrite Negative Urine Bilirubin Negative Urine Urobilinogen Normal Ur Leukocyte Esterase Negative Urine RBC 0 SEEN Urine WBC 0 SEEN Ur Squamous Epith Cells 0 SEEN Urine Bacteria 0 SEEN Urine Mucus 0 SEEN 10/27/17 10/28/17 10/28/17 22:20 02:40 02:40 WBC 6.6 RBC 4.49 L Hgb 13.7 Hct 39.6 L MCV 88.2 MCH 30.5 MCHC 34.6 RDW 13.1 RDW Differential 41.9 Plt Count 206 MPV 9.8 Immature Gran % (Auto) Neut % (Auto) Lymph % (Auto) [place] % (Auto) Eos % (Auto) Baso % (Auto) Absolute Neuts (auto) Absolute Lymphs (auto) Total Counted PT INR APTT Sodium 141 Potassium 4.0 Chloride 105 Carbon Dioxide 27.0 Anion Gap 9 BUN 10 Creatinine 0.78 Estim Creat Clear Calc 97.69 Est GFR (MDRD) Af Amer 131 Est GFR (MDRD) Non-Af 108 BUN/Creatinine Ratio 12.8 Glucose 94 Hemoglobin A1c Calcium 8.9 Total Bilirubin AST ALT Alkaline Phosphatase Troponin I < 0.015 Total Protein Albumin Globulin Albumin/Globulin Ratio Triglycerides 188 Cholesterol 203 H LDL Cholesterol 131 H VLDL Cholesterol 38 HDL Cholesterol 34 L TSH 3.83 H Urine Color Urine Clarity Urine pH Ur Specific [place] Urine Protein Urine Glucose (UA) Urine Ketones Urine Occult Blood Urine Nitrite Urine Bilirubin Urine Urobilinogen Ur Leukocyte Esterase Urine RBC Urine WBC Ur Squamous Epith Cells Urine Bacteria Urine Mucus 10/28/17 10/28/17 10/28/17 02:40 02:40 05:40 WBC RBC Hgb Hct MCV MCH MCHC RDW RDW Differential Plt Count MPV Immature Gran % (Auto) Neut % (Auto) Lymph % (Auto) [place] % (Auto) Eos % (Auto) Baso % (Auto) Absolute Neuts (auto) Absolute Lymphs (auto) Total Counted PT 12.7 INR 1.0 APTT 27.9 Sodium Potassium Chloride Carbon Dioxide Anion Gap BUN Creatinine Estim Creat Clear Calc Est GFR (MDRD) Af Amer Est GFR (MDRD) Non-Af BUN/Creatinine Ratio Glucose Hemoglobin A1c Calcium Total Bilirubin AST ALT Alkaline Phosphatase Troponin I < 0.015 < 0.015 Total Protein Albumin Globulin Albumin/Globulin Ratio Triglycerides Cholesterol LDL Cholesterol VLDL Cholesterol HDL Cholesterol TSH Urine Color Urine Clarity Urine pH Ur Specific [place] Urine Protein Urine Glucose (UA) Urine Ketones Urine Occult Blood Urine Nitrite Urine Bilirubin Urine Urobilinogen Ur Leukocyte Esterase Urine RBC Urine WBC Ur Squamous Epith Cells Urine Bacteria Urine Mucus 10/29/17 10/29/17 10/29/17 05:15 05:15 05:15 WBC 6.1 RBC 4.57 L Hgb 13.7 Hct 40.5 MCV 88.6 MCH 30.0 MCHC 33.8 RDW 12.8 RDW Differential 41.4 Plt Count 197 MPV 10.2 Immature Gran % (Auto) 0.200 Neut % (Auto) 45.9 L Lymph % (Auto) 33.6 [place] % (Auto) 10.0 Eos % (Auto) 10.0 H Baso % (Auto) 0.3 Absolute Neuts (auto) 2.8 Absolute Lymphs (auto) 2.05 Total Counted Not Reportable PT INR APTT Sodium 139 Potassium 4.3 Chloride 103 Carbon Dioxide 26.0 Anion Gap 10 BUN 14 Creatinine 0.86 Estim Creat Clear Calc 88.60 Est GFR (MDRD) Af Amer 117 Est GFR (MDRD) Non-Af 97 BUN/Creatinine Ratio 16.2 Glucose 132 H Hemoglobin A1c 5.5 Calcium 9.1 Total Bilirubin AST ALT Alkaline Phosphatase Troponin I Total Protein Albumin Globulin Albumin/Globulin Ratio Triglycerides Cholesterol LDL Cholesterol VLDL Cholesterol HDL Cholesterol TSH Urine Color Urine Clarity Urine pH Ur Specific [place] Urine Protein Urine Glucose (UA) Urine Ketones Urine Occult Blood Urine Nitrite Urine Bilirubin Urine Urobilinogen Ur Leukocyte Esterase Urine RBC Urine WBC Ur Squamous Epith Cells Urine Bacteria Urine Mucus Diagnostic Data Brain CT 10/27/17 17:26 IMPRESSION: No acute intracranial process. Mild opacification of the ethmoid sinuses consistent with a history of sinusitis. 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 Electronically Signed: Ruth Montes MD at 18:23 EDT Tel , Service support , Chest X-Ray 10/27/17 17:35 IMPRESSION: No acute cardiopulmonary process. Electronically Signed: Tim Loo at 17:45 EDT Tel , Service support , Brain MRI 10/28/17 21:40 IMPRESSION: Findings which may be consistent with old hemorrhagic contusions within the inferior frontal lobes however correlation with clinical history recommended. No other significant abnormalities. Specifically, no evidence for acute infarct Electronically Signed: Shawn Salvador MD at 16:12 EDT , Service support , Head MRA 10/28/17 21:40 IMPRESSION: Normal MRA of the head Electronically Signed: Shawn Salvador MD at 16:13 EDT , Service support , Neck MRA 10/28/17 21:40 IMPRESSION: Less than optimal visualization of the vertebral arteries which may be further assessed with CTA if clinically warranted. No evidence for significant carotid stenosis Electronically Signed: Shawn Salvador MD at 16:15 EDT , Service support , Operations: None Procedures: None Summary of Care Provided: The patient is a 57 year old M with a history of hyperlipidemia. He was admitted with a complaint of fatigue for 3 days and also tightness with exertion which limited his activities. He also reported intermittent memory loss and forgetfulness that had been going on since March of this year and stated that he occasionally forgot his phone number and his home address. He also complained of ringing sensation in his ears for about 8 months prior to admission and also had intermittent pain in his right he has an occasional discharge in his left ear. Patient works at a found[employer] and was exposed to loud noise and worn earplugs at work. He was admitted on account of his multiple complaints and was thought that the tightness may be due to coronary artery disease. He had a stress test which was negative. He had an MRI and MRA of the brain and the neck was also negative for any acute pathology; only significant finding was suspicion for old hemorrhagic contusions. He was given Debrox to his left ear. Patient remained stable and symptoms generally improved. He was discharged home on 10/29/2017 and referred to follow-up with ENT doctor for the ringing in his ears and his primary care doctor. Patient did have a primary care doctor so he was referred to Dr. Souza as a new patient. Patient seen and examined prior to discharge. He had no complaints and felt well. He denied any fever or chills, any cough or chest pain, any shortness of breath, abdominal pain, any diarrhea vomiting. Review of systems is otherwise negative. Home medications reviewed and reconciled. On examination: Vital Signs Height 5 ft 7 in Weight: 209 lb 10.554 oz Weight in Pounds 209.7 lbs Pulse Ox 97 Temperature 98.6 F Pulse Rate 76 Respiratory Rate 16 Blood Pressure 128/87 Blood Pressure Position Semi-Fowlers []General: Alert, Oriented x3, Cooperative HEENT: Atraumatic, PERRLA, EOMI, Normocephalic Oral: Moist Mucosa Neck: Supple, No JVD, Negative Carotid Bruits Lungs: Clear to auscultation, Normal air movement, No rhonchi, No wheeze, No rales Cardiovascular: Regular rate, Regular Rhythm, Normal S1, Normal S2, No murmurs Abdomen: Bowel Sounds Present, Soft, Non Tender, Non-Distended, No Hepato- splenomegaly Extremities: No clubbing, No cyanosis, No edema, Capillary Refill Less than 3 Seconds Skin: No rashes, No breakdown Musculoskeletal: No Tenderness to Palpation of Joints or Extremities Lymphatic: No Cervical, Supraclavicular, or Inguinal Adenopathy Neurological: Cranial nerves II-XII grossly intact, Motor Exam 5/5 strength throughout Psych/Mental Status: Normal Affect, Appropriate, Alert and oriented to time, place, person, mood and affect Plan as stated above. Patient given excuse duty from work for tomorrow 10/30/17. He is due to return to work on 11/02/17. Discharge summary copied to Dr Souza as patient has been referred to her to establish a PCP relationship. Discharge Diet: 2000 mg Sodium Diet Discharge Activity: No Restrictions Weight Bearing Status: Weight bearing as tolerated Call your doctor if you observe: Dizziness Home Medications: Medications to take at Discharge Aspirin [Aspirin, Baby] 81 mg PO DAILY@0800 10/28/16 B12/Levomefolate Calcium/B-6 [Folbic Rf Tablet] 1 each PO DAILY 10/27/17 Atorvastatin Calcium 40 mg PO QHS #30 tab 10/29/17 Following Prescrptions Were Given to Patient: Atorvastatin Calcium 40 mg PO QHS #30 tab Primary Care Physician: Care Physician,No Primary [Primary Care Provider] - Please follow up with your Primary Care Physician in: one week Please Follow Up With: Jerson Bond MD When: 2-3 weeks for tinnitus Please Follow Up With: Ivis Souza MD When: in 1-2 weeks to establish a primary care relationship Disposition: Home Minutes spent on discharge:: 35 Patient Condition:: Stable Medical Necessity - Tobacco Use Smoking Status: Current every day smoker Tobacco Use: Cigarettes Meaningful Use Info Meaningful Use Diagnoses (Choose all that apply): None applicable Code Visit Inpatient E&M: 26377 Disch Hosp
--- NOTE | 2017-10-29 12:02 | PCM.WORK.EX ---
Work/School Excuse Work/School Excuse for:: Patient Please excuse this person from:: Work From: 10/29/17 through: 11/01/17 - can return to work on 11/02/17
[2017-10-29 13:17] LABS: Hemoglobin A1c 5.5 % (4.2-6.3)
== END 2017-10-29 11:02 | disposition home or self-care (01) ==
LOC: ED 17:46 → PCU 20:56
PROVIDERS: Admitting Provider Hospitalist; Emergency Provider Emergency Medicine; Visit Provider Student in an Organized Health Care Education/Training Program
DX: R53.83 Other fatigue (principal); H93.19 Tinnitus, unspecified ear; F17.210 Nicotine dependence, cigarettes, uncomplicated; R06.02 Shortness of breath; R29.700 NIHSS score 0; I44.4 Left anterior fascicular block; E78.5 Hyperlipidemia, unspecified; Z79.82 Long term (current) use of aspirin
CPT/HCPCS: 36415; 70450; 70544; 70549; 70551; 71045; 78452; 80048; 80053; 80061; 81001; 83036; 84443; 84484; 85025; 85027; 85610; 85730; 92523; 93005; 93017; 93306; 96360; 96361; 97166; 99218; 99285; 99406; A9500; A9585; J7030; A4216; G0378; J2785

== ENCOUNTER 2018-11-24 01:29 | Emergency (ER) | payer OTHER, SELFPAY ==
[2018-11-24 01:30] VITALS: BP 158/75; PULSE 89; RESP 21; TEMP 36.6; O2SAT 95; BMI 32.1
--- NOTE | 2018-11-24 01:42 | ED.DCSUM_ITS ---
History of Present Illness Chief Complaint: Shortness of Breath Narrative: Patient is a 58-year-old male who presents with allergic symptoms. He complains of intermittent periorbital swelling and redness and itching of the eyes. He complains of nasal congestion and runny nose. He complains of cough. He states that he could not sleep tonight due to cough however he is not short of breath currently. He denies any pain. No fevers nausea vomiting. He uses Zyrtec but not every day. Past Medical History - Allergies and Home Meds Allergies/Adverse Reactions: Allergies No Known Allergies Allergy (Verified 11/24/18 01:36) Primary Care Physician: Jeferson Dyer MD [Primary Care Provider] - Surgical History: no surgical history Smoking Status: Current every day smoker - Family History Paternal Family History: Reports: Heart Disease Review of Systems All systems negative except as indicated General: Denies: Fever Eyes: Reports: - - Eye redness and itching, periorbital edema ENT: Reports: - - Nasal congestion and rhinorrhea Cardiovascular: Denies: Chest pain Respiratory: Reports: Cough. Denies: Dyspnea Gastrointestinal: Denies: Abdominal pain, Nausea, Vomiting, Diarrhea Physical Exam Vital Signs/Narrative: Vital Signs Temp Pulse Resp BP Pulse Ox 11/24/18 01:30 97.9 F 89 21 H 158/75 H 95 General: Well nourished Head: Normocephalic Eyes: Perrl, EOMI, - - No periorbital edema currently, no conjunctival injection ENT: Moist mucous membranes Neck: Supple Cardiovascular: Regular rate, Regular rhythm Respiratory: No distress, CTA bilaterally. Negative for: Rales, Rhonchi, Wheezing Abdomen: Soft Skin: Normal color Neurological: Alert Psychological: Normal affect Diagnostic/Tx/Re-eval - Medical Decision Making Patient's presentation is consistent with seasonal allergies/allergic rhinosinusitis. He was given prescriptions for an albuterol inhaler and Flonase and advised to follow-up with his primary care physician. He was discharged. EKG was obtained of nursing protocol which shows normal sinus rhythm at a rate of 86, inferior Q waves. No acute ischemic changes. ED Disposition - Plan for ED Patient: Disposition: Home or Assisted Living Diagnosis: Allergic rhinitis Instructions: Nasal Allergies: Related Problems Prescriptions: Fluticasone 0.05% [Flonase Nasal [place]] 1 spray NASAL BID #1 bottle Prescription Printed Albuterol Inhaler [Ventolin Hfa] 1 - 2 puff INHALATION Q4H PRN PRN #1 inhaler PRN Reason: Wheezing Prescription Printed Referrals: Jeferson Dyer MD [Primary Care Provider] -
[2018-11-24 01:54] VITALS: BP 159/118; PULSE 88; RESP 16; O2SAT 94
--- NOTE | 2018-11-24 01:55 | EKG12_ITS ---
Test Reason : SOB Blood Pressure : / mmHG Vent. Rate : 086 BPM Atrial Rate : 086 BPM P-R Int : 154 ms QRS Dur : 088 ms QT Int : 372 ms P-R-T Axes : 042 -87 058 degrees QTc Int : 445 ms Normal sinus rhythm Left axis deviation Inferior infarct , age undetermined Abnormal ECG Confirmed by HUMBERTO CURRAN ([id number]), greeting card editor ZEINA SINGH ([id number]) on 11/24/2018 1:37:14 PM Referred By: CORRIE Confirmed By:HUMBERTO CURRAN
== END 2018-11-24 01:55 | disposition home or self-care (01) ==
PROVIDERS: Emergency Provider Emergency Medicine; Family Provider Family Medicine; PCP Family Medicine
DX: J30.9 Allergic rhinitis, unspecified (principal); F17.200 Nicotine dependence, unspecified, uncomplicated
CPT/HCPCS: 93005; 99282